=== PATIENT | female | born 1980 | race Two or more races ===

== ENCOUNTER → 2016-12-26 | Outpatient (CLI) | payer OTHER | LOC: MERGE 20:13 → MW.RT 20:13 | PROVIDERS: ATTEND Emergency Medicine | DX: G47.39 Other sleep apnea (principal); G47.61 Periodic limb movement disorder; I10 Essential (primary) hypertension; Z79.899 Other long term (current) drug therapy | CPT/HCPCS: 95810 ==

== ENCOUNTER 2022-09-27 09:14 | Day surgery (SDC) | payer OTHER ==
[~2022-09-27 09:14] MED LIST: Lactated Ringers 1,000 ML IV SCH
[2022-09-27] MEDS ORDERED: Propofol 200 MG/20 ML SDV ONE ×2 (09:39→10:04)
[2022-09-27] MEDS ORDERED: Lidocaine 2% 5 ML SDV ONE (09:39)
[2022-09-27 10:59] VITALS: BP 118/77; PULSE 82
== END 2022-09-27 11:05 | disposition home or self-care (01) ==
LOC: MW.SDS 09:14
PROVIDERS: ATTEND Surgery
DX: Z12.11 Encounter for screening for malignant neoplasm of colon (principal); D12.0 Benign neoplasm of cecum; K64.8 Other hemorrhoids; I10 Essential (primary) hypertension; E11.9 Type 2 diabetes mellitus without complications; F41.9 Anxiety disorder, unspecified; F32.A Depression, unspecified; G47.33 Obstructive sleep apnea (adult) (pediatric); E66.9 Obesity, unspecified; Z68.33 Body mass index [BMI] 33.0-33.9, adult; Z80.0 Family history of malignant neoplasm of digestive organs; Z88.8 Allergy status to other drugs, medicaments and biological substances; Z88.1 Allergy status to other antibiotic agents; Z98.890 Other specified postprocedural states; Z79.899 Other long term (current) drug therapy
CPT/HCPCS: 45380; 45385; 81025; J2704; J7120; 00812

== ENCOUNTER 2022-11-15 15:10 | Emergency (ER) | payer OTHER ==
[2022-11-15] MEDS ORDERED: Sodium Chloride 0.9% 2.5 ML Syringe FLUSH PRN (15:24)
[2022-11-15] MEDS ORDERED: Sodium Chloride 0.9% 10 ML Syringe FLUSH PRN (15:24)
[2022-11-15 15:35] VITALS: BP 136/95; PULSE 91
[2022-11-15] MEDS ORDERED: Sodium Chloride 0.9% 1,000 ML IV ONE (15:58)
[2022-11-15 16:46] LABS: CARBON DIOXIDE,CO2 26.1 mmol/L (21.0-32.0); POTASSIUM,K 3.8 mmol/L (3.5-5.1)
[2022-11-15 17:34] LABS: CORONAVIRUS COVID-19 NAA NEGATIVE (NEGATIVE); INFLUENZA A NAA NEGATIVE (NEGATIVE); INFLUENZA B NAA NEGATIVE (NEGATIVE)
== END 2022-11-15 18:15 | disposition home or self-care (01) ==
LOC: MW.ED 15:10
DX: R55 Syncope and collapse (principal); G93.0 Cerebral cysts; I10 Essential (primary) hypertension; E11.9 Type 2 diabetes mellitus without complications; E66.9 Obesity, unspecified; Z68.34 Body mass index [BMI] 34.0-34.9, adult; Z88.8 Allergy status to other drugs, medicaments and biological substances; Z79.899 Other long term (current) drug therapy; Z20.822 Contact with and (suspected) exposure to COVID-19; X50.0XXA Overexertion from strenuous movement or load, initial encounter
CPT/HCPCS: 0240U; 36415; 70450; 71045; 80053; 81001; 81025; 82947; 85025; 93005; 96360; 99284; J3490; J7030; 93010; 99283